=== PATIENT | female | born 1955 | race Caucasian/White ===

== ENCOUNTER 2019-02-12 06:18 | Day surgery (SDC) | payer OTHER ==
[~2019-02-12] VITALS: Ht 165.1 cm; Wt 90.7 kg
[~2019-02-12 06:18] MED LIST: LEVOTHYROXINE137 MCG PO; METFORMIN HCL500 M1 PO; PROZAC20 MG PO; VICTOZA0.6 MG/0.1 SQ
[2019-02-12 06:39] LABS: HEMATOCRIT 44.9 % (36.0-48.0); HEMOGLOBIN 15.1 g/dL (12-16); MCH 30.9 pg (26.0-34.0); MCHC 33.6 g/dL (31.0-37.0); MCV 91.8 fL (80.0-100.0); MEAN PLATELET VOLUME 10.8 fL (7.4-10.4); RBC 4.89 10x6/uL (4.00-5.40); RDW 13.4 % (11.5-14.5); WBC 6.7 10x3/uL (4.8-10.8)
[2019-02-12 06:59] LABS: CALC OSMOLALITY 278 mosm/kg (275-300); CALCIUM 9.2 mg/dL (8.5-10.1); CARBON DIOXIDE 25.3 mmol/L (21.0-32.0); CHLORIDE - SERUM 105 mmol/L (98-107); CREATININE - SERUM 0.8 mg/dL (0.6-1.3); GLUCOSE 114 mg/dL (74-106); POTASSIUM - SERUM 4.2 mmol/L (3.5-5.1); SODIUM 140 mmol/L (136-145); UREA NITROGEN 10 mg/dL (7-18); eGFR NON AFRICAN AMERICAN 76 mL/min (90-120)
[2019-02-12 08:05] VITALS: BP 118/84; Ht 165.1 cm; Wt 90.7 kg
--- NOTE | 2019-02-14 15:14 | OP ---
PATIENT NAME: MICHELLE HARDY MEDICAL RECORD: [id number] :53 LOCATION:D.OPS ADMISSION DATE: SURGEON: TERESA JIN MD DATE OF OPERATION: 02/12/2019 PREOPERATIVE DIAGNOSES: 1. History of human papillomavirus of the anus. 2. Anorectal polyps. POSTOPERATIVE DIAGNOSES: 1. History of human papillomavirus of the anus. 2. 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 PROCEDURES: 1. Anal evaluation under anesthesia with incisional anal biopsies. 2. Anal brushings for cytology. 3. Ablation of condyloma with the argon plasma instructional material director utilizing the right colon setting in the forced mode. FINDINGS: The risks, possible complications and alternatives to the procedure were explained to the patient. She elects to proceed. The discussion specifically included, but was not limited to, bleeding requiring emergency reoperation, infection, possible need for an additional procedure, the probable need for anal brushings in the future for surveillance, possible need for a repeat treatment with ablation of condyloma. OPERATIVE COURSE: The patient was conveyed to the operating room electively on 02/12/2019. General anesthesia was induced by the anesthesia staff. The patient was placed in lithotomy position. The buttocks were taped laterally. The anus and perianal areas were sterilely prepped and draped. U-shaped anal retractors were placed within the anus. Anal evaluation revealed no definite polypoid tissue. There were some condylomata. I took an anal brush and brushed the anus vigorously and sent this to pathology in the appropriate fixative for cytology. The U-shaped anal retractors were then replaced. I took a pair of biopsy forceps and removed some tissue, which appeared weak condylomata. These were the incisional anal biopsies. Utilizing filtered vacuum suction, I performed an ablation of residual condylomatous tissue utilizing the argon plasma instructional material director with the right colon setting in the forced mode. I was quite satisfied with the result. There was no bleeding. Gelfoam was applied within the anus and lower rectum. A combination of steroid preparation and Marcaine were used to infiltrate the perianal tissues. A topical anesthetic cream was applied to the external hemorrhoids. The patient was then extubated and conveyed to post-anesthesia care unit where she was in stable condition. TRANSINT:[id number] Voice Confirmation ID: [id number] DOCUMENT ID: [id number] OPERATIVE REPORT [id number] MICHELLE HARDY ROBERT MD at 1514 CC: ENA PERAZA MD and BROOKE GALEANA [id number] DICTATION DATE: 02/13/19 1046 CRYSTAL LAPPER: 02/13/19 1124 [facility] 02/12/19 [place] [id number]
== END 2019-02-12 13:15 | disposition home or self-care (01) ==
LOC: D.OPS 06:18 → D.PAN 09:00 → D.OPS 13:15
PROVIDERS: Anesthesiology; ATTEND Surgery
DX: K62.0 Anal polyp (principal); A63.0 Anogenital (venereal) warts; Z01.812 Encounter for preprocedural laboratory examination

== ENCOUNTER → 2019-03-28 09:50 | Outpatient (CLI) | payer OTHER ==
[2019-02-12 08:05] VITALS: BMI 33.3
[2019-03-28 10:51] LABS: ALBUMIN 3.2 g/dL (3.4-5.0); BILIRUBIN - DIRECT 0.07 mg/dL (0.00-0.30); BILIRUBIN - INDIRECT 0.27 mg/dL (0.00-1.00); BILIRUBIN - TOTAL 0.34 mg/dL (0.2-1.3); PROTEIN - SERUM 6.7 g/dL (6.4-8.2)
== END | disposition home or self-care (01) ==
LOC: D.US 09:50
PROVIDERS: ATTEND Internal Medicine Gastroenterology
DX: K76.0 Fatty (change of) liver, not elsewhere classified (principal)

== ENCOUNTER → 2020-04-19 08:23 | Outpatient (CLI) | payer OTHER ==
[2019-02-12 08:05] VITALS: BMI 33.3
[2020-04-19 10:31] LABS: ALBUMIN 3.2 g/dL (3.4-5.0); BILIRUBIN - DIRECT 0.08 mg/dL (0.00-0.30); BILIRUBIN - INDIRECT 0.33 mg/dL (0.00-1.00); BILIRUBIN - TOTAL 0.41 mg/dL (0.2-1.3); PROTEIN - SERUM 6.7 g/dL (6.4-8.2)
== END | disposition home or self-care (01) ==
LOC: D.US 03-29 09:30
PROVIDERS: ATTEND Internal Medicine Gastroenterology
DX: K76.0 Fatty (change of) liver, not elsewhere classified (principal)

== ENCOUNTER 2021-02-15 05:36 | Day surgery (SDC) | payer OTHER ==
[~2021-02-15] VITALS: Ht 165.1 cm; Wt 90.9 kg
[2021-02-15 06:00] LABS: BASOPHILS 0.9 % (0-2); EOSINOPHILS 2.9 % (0-7); HEMATOCRIT 45.3 % (36.0-48.0); HEMOGLOBIN 14.9 g/dL (12-16); LYMPHOCYTES 27.2 % (15-50); MCH 30.4 pg (26.0-34.0); MCV 92.1 fL (80.0-100.0); MEAN PLATELET VOLUME 8.5 fL (7.4-10.4); MONOCYTES 7.7 % (2-11); NEUTROPHILS 61.3 % (40-80); PLATELET COUNT 271 10x3/uL (130-400); RBC 4.92 10x6/uL (4.00-5.40); RDW 14.2 % (11.5-14.5); WBC 10.3 10x3/uL (4.8-10.8)
[2021-02-15 06:15] LABS: CALC OSMOLALITY 277 mosm/kg (275-300); CALCIUM 8.8 mg/dL (8.5-10.1); CARBON DIOXIDE 28.5 mmol/L (21.0-32.0); CHLORIDE - SERUM 104 mmol/L (98-107); CREATININE - SERUM 0.8 mg/dL (0.6-1.3); GLUCOSE 105 mg/dL (74-106); POTASSIUM - SERUM 4.3 mmol/L (3.5-5.1); SODIUM 140 mmol/L (136-145); UREA NITROGEN 11 mg/dL (7-18); eGFR NON AFRICAN AMERICAN 76 mL/min (90-120)
[2021-02-15 06:57] VITALS: Ht 165.1 cm; Wt 90.9 kg
[2021-02-15] MEDS ORDERED: [UNRECOGNIZED DRUG - OTHER] (07:03)
[2021-02-15] MEDS ORDERED: FLUTICASONE PRO16 GM NASAL (07:04)
--- NOTE | 2021-02-15 09:36 | HP ---
PATIENT: MICHELLE HARDY MEDICAL RECORD: [id number] ACCOUNT: [id number] LOCATION:D.OPS : 53 ADMISSION DATE: 02/15/21 PCP: ENA PERAZA MD HISTORY AND PHYSICAL EXAMINATION HISTORY OF PRESENT ILLNESS: She is here today for colonoscopy exam as well as anal brushings. She has a history of human papillomavirus of the anus and has undergone anal brushings in the past as well as ablation of condylomata with the argon plasma clinical biostatistician by me back in 2019. She has a history of colorectal polyps as well as need of surveillance colonoscopy. The risks, possible complications, and alternatives of the procedure were explained to the patient. She elects to proceed. HOME MEDICATIONS: Reviewed. ALLERGIES: LATEX AND LACTOSE. SOCIAL HISTORY: Nonsmoker. PAST MEDICAL AND SURGICAL HISTORY: Sleep apnea, not on CPAP; fatty liver disease; hypothyroidism, on replacement therapy; prediabetic; TIAs. REVIEW OF SYSTEMS: Negative for arthritis or renal disease, negative for myocardial infarction or hypertension. IMPRESSION: 1. History of colon polyps, in need of surveillance colonoscopy. 2. History of condylomata of the anus. PLAN: Surveillance colonoscopy as well as anal brushings. TRANSINT:[id number] Voice Confirmation ID: [id number] DOCUMENT ID: [id number] TERESA JIN MD at 0936 CC: ENA PERAZA MD [id number] DICTATION DATE: 02/15/21 0845 CHEMIST PROTEINS: 02/15/21 0924 [address] [place] [id number] [place] [address]
--- NOTE | 2021-02-15 15:36 | OP ---
PATIENT NAME: MICHELLE HARDY MEDICAL RECORD: [id number] :53 LOCATION:D.OPS ADMISSION DATE: SURGEON: TERESA JIN MD DATE OF OPERATION: 02/15/2021 PREOPERATIVE DIAGNOSES: 1. History of colon polyps, in need of surveillance colonoscopy. 2. History of anal papilloma, but from human papillomavirus, in need of surveillance anal brushings. POSTOPERATIVE DIAGNOSES: 1. History of colon polyps, in need of surveillance colonoscopy. 2. History of anal papilloma, but from human papillomavirus, in need of surveillance anal brushings with apparent 2 areas of regrowth of anal papillomata. PROCEDURES: 1. Total colonoscopy to cecum. 2. Argon plasma coagulation ablation of anal papillomas times 2. 3. Anal brushings for cytology. SURGEON: Teresa Jin MD OCEAN BIOLOGIST: None. BLOOD LOSS: Minimal. ANESTHESIA: IV sedation. COMPLICATIONS: None. The risks, possible complications, and alternatives of the procedure were explained to the patient. She elected to proceed. The discussion specifically included, but was not limited to, bleeding requiring emergency reoperation, infection as well as endoscopic perforation. ENDOSCOPIC COURSE: The patient was conveyed to the endoscopy suite electively on 02/15/2021. IV sedation was induced by the anesthesia staff. The patient was placed in the Daley position. A digital rectal examination was performed. There were some rough areas within the anus on digital examination. A colonoscope was inserted through the anus. It was easily advanced to the cecum. The prep was adequate. Upon withdrawal, I irrigated and aspirated extensively. I dragged the folds. The pullback was greater than a 16-minute pullback. A combination of normal imaging and narrow band imaging were utilized. A retroflex view was obtained in the rectum. There were 2 areas on retroflexion that I was concerned about that appeared to represent recurrent or new anal papillomas. Utilizing argon plasma plumbing hardware assembler with a rectal setting in the forced mode, I ablated these 2 areas. I then unretroflexed the scope and removed it under direct vision. I then took an anal brush and vigorously brushed the anus for anal cytology. This was sent to the pathology department in cytology fluid. The patient was then conveyed back to her room. I will plan that she will follow up with me or Chasity Cueva, my nurse practitioner in the office. I will OPERATIVE REPORT [id number] AGA HARDYNIK LINK plan for her next anal brushings to take place in 3 years. I think we can wait another 5 years for her surveillance colonoscopy. TRANSINT:[id number] Voice Confirmation ID: [id number] DOCUMENT ID: [id number] TERESA JIN MD at 1536 CC: [id number] DICTATION DATE: 02/15/21 0937 PHOTOVOLTAIC SUBCONTRACTOR: 02/15/21 1016 [address] [place] [id number] [place] [id number]
--- NOTE | 2021-02-15 17:36 | NUR ---
1032 DRESSED, AWAKE & ALERT. PROVIDED WITH D/C INFORMATION INCLUDING: MED REC., RTC APPT., SHEET LISTING NSAIDS TO AVOID. PT VOICED UNDERSTANDING. TO PRIVATE CAR PER WHEELCHAIR BY THIS NURSE. HOME WITH HARDY. Trey CASTELLON R.N.
== END 2021-02-15 10:32 | disposition home or self-care (01) ==
LOC: D.OPS 05:36
PROVIDERS: Anesthesiology; ATTEND Surgery
DX: Z86.010 Personal history of colon polyps (principal); Z86.19 Personal history of other infectious and parasitic diseases; K62.0 Anal polyp